=== PATIENT | female | born 1995 | race Caucasian/White ===

== ENCOUNTER 2017-01-01 11:34 | Outpatient (CLI) | payer OTHER ==
[2017-01-01 12:22] LABS: #Eosinphils 0.1 thou/uL (0.0-0.7); #Lymphocytes 1.6 thou/uL (1.20-3.40); #Monocytes 0.4 thou/uL (0.11-0.59); #Neutrophils 3.7 thou/uL (1.40-6.50); %Basophils 0.5 % (0.0-1.0); %Eosinophils 2.1 % (0.0-10.0); %Lymphocytes 26.9 % (21.0-51.0); %Monocytes 6.4 % (0.0-10.0); Hematocrit 41.6 % (36.0-47.0); Mean Platelet Volume 7.8 fL (7.4-10.4); Red Blood Cell (RBC) Count 4.47 mill/uL (4.20-5.40); White Blood Cell (WBC) Count 5.8 thou/uL (4.8-10.8)
--- OUTSIDE RECORDS SUMMARY | 2017-01-01 12:25 | XMS | Clinical Summary ---
:1995 Author Organization [facility] Address [address] [place] [address] Phone Care Team Providers Name Role Phone , Primary Care Provider Unavailable Allergies Not on File Current Medications Not on file Active Problems Not on file Social History Tobacco Use Types Packs/Day Years Used Date Never Assessed Sex Assigned at Date Recorded Not on file Last Filed Vital Signs Not on file Plan of Treatment Not on file Results Not on filefrom Last 3 Months
== END 2017-01-01 11:35 | disposition home or self-care (01) ==
LOC: LABBT 11:34
PROVIDERS: ATTEND Orthopaedic Surgery Sports Medicine
DX: Z01.818 Encounter for other preprocedural examination (principal); M25.312 Other instability, left shoulder
CPT/HCPCS: 85025

== ENCOUNTER 2017-01-08 06:27 | Day surgery (SDC) | payer OTHER ==
[2017-01-01 11:53] VITALS: BMI 19.4
--- OUTSIDE RECORDS SUMMARY | 2017-01-08 06:31 | XMS | Clinical Summary ---
:1995 Author Organization [facility] Address [address] [place] [address] Phone Care Team Providers Name Role Phone [...]
[2017-01-08] MEDS ORDERED: Midazolam HCl 2 mg/2 ml Vial ONE (07:09)
[2017-01-08] MEDS ORDERED: Fentanyl 100 MCG/2 ML VIAL ONE (07:09)
[2017-01-08] MEDS ORDERED: Ropivacaine 0.2% HCl/PF 20 ML ONE (07:10)
[2017-01-08] MEDS ORDERED: CEFAZOLIN/Water 2 GM/20 ML SYRINGE ONE (07:49)
[2017-01-08] MEDS ORDERED: Zolpidem Tartrate 5 MG TAB PO PRN (08:03)
[2017-01-08] MEDS ORDERED: Promethazine HCl 25 MG/ML VIAL IM PRN (08:03)
[2017-01-08] MEDS ORDERED: traMADol HCl 50 MG TAB PO PRN ×2 (08:03)
[2017-01-08] MEDS ORDERED: Ondansetron HCl/PF 4 MG/2 ML Vial IVP PRN (08:03)
[2017-01-08] MEDS ORDERED: Ketorolac Tromethamine 30 MG/ML VIAL IVP PRN (08:03)
[2017-01-08] MEDS ORDERED: HYDROcodone/Acetaminophen 5/325 mg Tablet PO PRN ×2 (08:03)
[2017-01-08] MEDS ORDERED: Ropivacaine 0.2% 550 ML 550 ML NERVE BLCK SCH (08:03)
[2017-01-08] MEDS ORDERED: ePHEDrine/0.9% NaCl/PF SYRINGE 50 mg/10 ml ONE (08:41)
[2017-01-08] MEDS ORDERED: Lidocaine 2% MPF 10 ML AMP (For Epidural Use) ONE (08:41)
[2017-01-08] MEDS ORDERED: Ondansetron HCl/PF 4 MG/2 ML Vial ONE (08:41)
[2017-01-08] MEDS ORDERED: Glycopyrrolate 0.2 MG/ML 5 ML SYRINGE ONE (08:41)
[2017-01-08] MEDS ORDERED: Ketorolac Tromethamine 30 MG/ML VIAL ONE (08:41)
[2017-01-08] MEDS ORDERED: Propofol 200 MG/20 ML VIAL ONE (08:41)
--- NOTE | 2017-01-08 15:05 | OP ---
PREOPERATIVE DIAGNOSIS: Multidirectional instability, left shoulder. POSTOPERATIVE DIAGNOSIS: Multidirectional instability, left shoulder. PROCEDURES PERFORMED: Open anterior capsular shift procedure. SURGEON: Dr. Chacon. INSURANCE CLAIMS ADJUSTER: Mark Moreira PA-C. BLOOD LOSS: Less than 100. SPECIMEN: None. DRAINS: None. COMPLICATIONS: None. DESCRIPTION OF PROCEDURE: The patient was taken to the operating room where general anesthesia was induced. The patient placed in a beach chair position. Left arm was prepped and draped in the usua l sterile fashion. I made a modified deltopectoral approach. Dissection was carried down to the ca psule. I divided only about the superior two-thirds of the subscapularis, carefully dissected the s ubscapularis off of the capsule, split the capsule all the way down to the 6 o'[address] I pl aced 6 sutures through the capsule and injected the capsule anteriorly, superiorly and laterally to decrease the space in the anterior capsule and the posterior capsule of the shoulder. This was done with simple sutures through the capsule both sides. The shoulder was noted to be markedly mor e stable after this held in position nicely by the capsule. Subscapularis was imbricated over the f ront and repaired with three #1 Ethibond and #1 Vicryl. The rotator interval was repaired with #1 V icryl. Irrigation was performed. Subcutaneous tissue closed with 2-0 Vicryl, the skin was closed w ith Prolene. Sterile dressings applied. There were no complications.
== END 2017-01-08 12:33 | disposition home or self-care (01) ==
LOC: SDC 06:27
PROVIDERS: ATTEND Orthopaedic Surgery Sports Medicine
PROC: 0RQK0ZZ Repair Left Shoulder Joint, Open Approach (ICD-10-PCS; principal; 2017-01-08)
DX: M25.312 Other instability, left shoulder (principal); G43.909 Migraine, unspecified, not intractable, without status migrainosus; Z79.899 Other long term (current) drug therapy; Z98.890 Other specified postprocedural states
CPT/HCPCS: A4306; J1885; J2001; J2250; J2405; J2704; J2795; J3010

== ENCOUNTER → 2017-01-09 | Day surgery (SDC) | payer OTHER ==
[~2017-01-09] MED LIST: Fentanyl 100 MCG/2 ML VIAL ONE
--- OUTSIDE RECORDS SUMMARY | 2017-01-09 16:18 | XMS | Clinical Summary ---
:1995 Author Organization [facility] Address [address] [place] [address] Phone Care Team Providers Name Role Phone [...]
== END ==
LOC: SDC 16:14
PROVIDERS: ATTEND Anesthesiology
PROC: 3E0T3GC Introduction of Other Therapeutic Substance into Peripheral Nerves and Plexi, Percutaneous Approach (ICD-10-PCS; principal; 2017-01-09)
DX: Z46.82 Encounter for fitting and adjustment of non-vascular catheter (principal); M25.312 Other instability, left shoulder; G43.909 Migraine, unspecified, not intractable, without status migrainosus; Z98.890 Other specified postprocedural states
CPT/HCPCS: J3010

== ENCOUNTER 2017-01-29 10:13 | Emergency (ER) | payer OTHER ==
[2017-01-29 11:02] LABS: #Eosinphils 0.1 thou/uL (0.0-0.7); #Lymphocytes 1.3 thou/uL (1.20-3.40); #Monocytes 0.4 thou/uL (0.11-0.59); #Neutrophils 2.1 thou/uL (1.40-6.50); %Basophils 0.9 % (0.0-1.0); %Eosinophils 2.4 % (0.0-10.0); %Lymphocytes 31.9 % (21.0-51.0); Hematocrit 37.5 % (36.0-47.0)
[2017-01-29 11:25] LABS: ALT (SGPT) 11 U/L (8-55); AST (SGOT) 16 U/L (5-34); Alkaline Phosphatase 115 U/L (40-150); Anion Gap 9 mmol/L (10-20); BUN (Urea Nitrogen) 9 mg/dL (7.0-18.7); Bilirubin, Total 0.6 mg/dL (0.2-1.2); Calc. Creatinine Clearance 0 mL/min (70-130); Calcium 9.2 mg/dL (7.8-10.44); Carbon Dioxide 25 mmol/L (22-29); Chloride 108 mmol/L (98-107); Estimated GFR-MDRD Greater than 90; Protein, Total 7.1 g/dL (6.0-8.3)
== END 2017-01-29 11:49 | disposition home or self-care (01) ==
LOC: ERS 10:13
DX: T81.4XXA Infection following a procedure, initial encounter (principal); T81.31XA Disruption of external operation (surgical) wound, not elsewhere classified, initial encounter; F41.9 Anxiety disorder, unspecified
CPT/HCPCS: 36415; 80053; 84703; 85025; 85652; 86140; 87070; 87077; 87205; 99283

== ENCOUNTER 2017-01-31 21:47 | Emergency (ER) | payer OTHER | END 2017-01-31 23:49 | disposition home or self-care (01) | LOC: ERS 21:47 | DX: Z48.817 Encounter for surgical aftercare following surgery on the skin and subcutaneous tissue (principal); F41.9 Anxiety disorder, unspecified | CPT/HCPCS: 99282 ==